=== PATIENT | female | born 1940 | race Caucasian/White ===

== ENCOUNTER → 2022-11-12 12:52 | Outpatient (BNVA) | payer MEDICARE, SELFPAY | PROVIDERS: Family Provider Family Medicine; PCP Family Medicine; Visit Provider Internal Medicine | DX: M35.3 Polymyalgia rheumatica (principal); R70.0 Elevated erythrocyte sedimentation rate | CPT/HCPCS: 36415; 80053; 81001; 82550; 85025; 85651; 86160; 86162; 86200; 86235; 86255; 86376; 86480; 86704; 86803; 87077; 87086; 87186; 87340; 99204 ==